=== PATIENT | female | born 1940 | race Caucasian/White ===

== ENCOUNTER 2021-03-03 22:36 | Emergency (ER) | payer OTHER, MEDICAID ==
[~2021-03-03] VITALS: Ht 160 cm; Wt 63.5 kg
[~2021-03-03 22:36] MED LIST: ACET-2634 PO; ACET-73 PO; ARGI500T4 PO; ASA81 PO; ASCO500T20 PO; ATEN-166 PO; BISA10SU61 RC; DONE10TA44 PO; FERR-69 PO; HYDR-3917 PO; INSU100V9 SQ; LEVO25TA2 PO; LIP40 PO; LOSA100T3 PO; MEGE20TA6 PO; MELA1TAB14 PO; METF-833 PO; MOM PO; MULT-1117 PO; NYST15PO2 TP; SENN8.6T19 PO; SSNOVOLOG SUBCUT; VANC750P14 IV; ZINC100T2 PO; [UNRECOGNIZED DRUG - CODE] PO
[2021-03-03 22:45] VITALS: BP_SYST 126
[2021-03-03 23:21] LABS: HEMATOCRIT 24.3 % (36-48); MEAN CORPUSCULAR HEMOGLOBIN 31 pg (27-31); MEAN CORPUSCULAR HGB CONC 33 % (32-36); MEAN CORPUSCULAR VOLUME 93 fL (79.0-98.0); PLATELET COUNT (AUTO) 355 K/uL (130-430); RED BLOOD CELL COUNT(AUTO) 2.62 MIL/uL (4.2-6.2); RED CELL DISTRIBUTION WIDTH 14.9 % (9.0-15.0); WHITE BLOOD COUNT (AUTO) 19.1 K/uL (4.8-10.8)
[2021-03-03 23:31] LABS: ALANINE AMINOTRANSFERASE 40 U/L (12-78); ASPARTATE AMINOTRANSFERASE 20 U/L (10-37); CALCIUM 8.4 mg/dL (8.4-11.0); CHLORIDE 106 mmol/L (98-107); CREATININE 0.81 mg/dL (0.55-1.30); GLUCOSE 104 mg/dL (70-99); POTASSIUM 4.8 mmol/L (3.5-5.1); SODIUM SERUM 137 mmol/L (136-145); TOTAL BILIRUBIN 0.2 mg/dL (0.0-1.0); UREA NITROGEN, BLOOD 27 mg/dL (8-21)
[2021-03-03 23:34] LABS: ATYPICAL LYMPHOCYTES % 0 % (0-0); BAND % (MANUAL) 1 % (0-6); LYMPHOCYTES % (MANUAL) 11 % (20-46)
[2021-03-03 23:35] LABS: BASOPHILS % (MANUAL) 0 % (0-2); EOSINOPHILS % (MANUAL) 1 % (0-7); MONOCYTES % (MANUAL) 8 % (0-11)
[2021-03-03 23:37] LABS: ANION GAP 7 (5-15)
[2021-03-03] MEDS ORDERED: fentaNYL CITRATE/PF 100 MCG/2 ML AMP IVP ONE (23:45)
[2021-03-03] MEDS ORDERED: ONDANSETRON HCL 4 MG/2 ML VIAL IVP ONE (23:45)
[2021-03-04 02:02] LABS: BILIRUBIN,URINE NEGATIVE (NEGATIVE); BLOOD, URINE NEGATIVE (NEGATIVE); CLARITY/URINE CLEAR (CLEAR); COLOR,URINE YELLOW (YELLOW); GLUCOSE,URINE NEGATIVE (NEGATIVE); KETONES,URINE NEGATIVE (NEGATIVE); LEUKOCYTE ESTERASE ,URINE 1+ (NEGATIVE); NITRITE, URINE NEGATIVE (NEGATIVE); PROTEIN URINE NEGATIVE (NEGATIVE); UROBILINOGEN,URINE 0.2 (0.2-1.0)
[2021-03-04] MEDS ORDERED: ONDA-8 TL (02:02)
[2021-03-04 02:09] LABS: BACTERIA,URINE FEW /HPF (None Seen); RBC,URINE 0-3 /HPF (0-3)
[2021-03-04] MEDS ORDERED: LEVOFLOXACIN IN DEXTROSE 5 % 100 ML IV ONE ×2 (02:30→02:41)
[2021-03-04 03:36] VITALS: BP_SYST 127
== END 2021-03-04 03:36 ==
LOC: SED 22:36
DX: S06.2X0A Diffuse traumatic brain injury without loss of consciousness, initial encounter (principal); S70.01XA Contusion of right hip, initial encounter; S80.01XA Contusion of right knee, initial encounter; M86.9 Osteomyelitis, unspecified; F03.90 Unspecified dementia, unspecified severity, without behavioral disturbance, psychotic disturbance, mood disturbance, and anxiety; I10 Essential (primary) hypertension; E11.9 Type 2 diabetes mellitus without complications; W18.39XA Other fall on same level, initial encounter; Y93.89 Activity, other specified; Y92.89 Other specified places as the place of occurrence of the external cause; Y99.8 Other external cause status; Z88.0 Allergy status to penicillin; Z79.899 Other long term (current) drug therapy
CPT/HCPCS: 36415; 70450; 71045; 72125; 73502; 73560; 76376; 80053; 81000; 83605; 85007; 85027; 85610; 85730; 87040; 87086; 96374; 96375; 99285; J1956; J2405; J3010

== ENCOUNTER 2021-07-10 02:21 | Inpatient (IN) | payer OTHER, MEDICAID, SELFPAY ==
[~2021-07-10] VITALS: Ht 157.5 cm; Wt 54.4 kg
[~2021-07-10 02:21] MED LIST changes: +MEGE20TA3 PO; -MEGE20TA6 PO; +ONDA-8 TL
--- NOTE | 2021-07-10 02:21 | NUR ---
Received patient to ER via BLS ambulance from [facility] w/ c/o abnormal labs (wbc 31.2). patient oriented to name only, non-verbal but moans when being poked or pricked. patient noted to have bilateral heel decubs and coccyx decub. Contracted to right lower leg. Introduced self to patient, positioned for comfort, continue to monitor.
[2021-07-10 02:26] VITALS: BP_SYST 110
--- NOTE | 2021-07-10 02:40 | NUR ---
# 20 gauge angiocath placed to right forearm. Use of asceptic technique. Opsite placed over site. Blood return noted. Blood for lab drawn from site. Flushed with 10 cc of normal saline. No evidence of infiltration noted. Patient tolerated well. Covid, MRSA, and blood cx x1 obtained as well.
--- NOTE | 2021-07-10 03:00 | NUR ---
# 16 FR Ruiz catheter with use of sterile technique. Immediate return of 500 cc yellow cloudy urine noted. Bedside drainage bag placed below level of bladder. Urine sample collected and sent to lab. Pt tolerated procedure.
[2021-07-10 03:32] LABS: ANION GAP 9 (5-15); BASOPHILS # (AUTO) 0.1 K/uL (0.0-0.2); BASOPHILS % (AUTO) 0.2 % (0.0-2.0); CALCIUM 8.7 mg/dL (8.4-11.0); CHLORIDE 99 mmol/L (98-107); CREATININE 1.29 mg/dL (0.55-1.30); GLUCOSE 174 mg/dL (70-99); HEMATOCRIT 22.4 % (36-48); HEMOGLOBIN 7.3 g/dL (12.0-16.0); LYMPHOCYTES # (AUTO) 3.4 K/uL (1.0-5.5); LYMPHOCYTES % (AUTO) 10.8 % (20.5-51.5); MEAN CORPUSCULAR HEMOGLOBIN 31 pg (27-31); MEAN CORPUSCULAR HGB CONC 32 % (32-36); MEAN CORPUSCULAR VOLUME 94 fL (79.0-98.0); MONOCYTES # (AUTO) 1.8 K/uL (0.0-1.0); MONOCYTES % (AUTO) 5.6 % (1.7-9.3); NEUTROPHILS # (AUTO) 26.6 K/uL (1.8-7.7); NEUTROPHILS % (AUTO) 83.4 % (40.0-70.0); PLATELET COUNT (AUTO) 331 K/uL (130-430); POTASSIUM 5.2 mmol/L (3.5-5.1); RED BLOOD CELL COUNT(AUTO) 2.38 MIL/uL (4.2-6.2); RED CELL DISTRIBUTION WIDTH 16.7 % (9.0-15.0); SODIUM SERUM 130 mmol/L (136-145); UREA NITROGEN, BLOOD 66 mg/dL (8-21)
[2021-07-10 03:33] LABS: BILIRUBIN,URINE NEGATIVE (NEGATIVE); BLOOD, URINE 1+ (NEGATIVE); COLOR,URINE YELLOW (YELLOW); GLUCOSE,URINE NEGATIVE (NEGATIVE); KETONES,URINE TRACE (NEGATIVE); LEUKOCYTE ESTERASE ,URINE 3+ (NEGATIVE); NITRITE, URINE NEGATIVE (NEGATIVE); PH,URINE 5.5 (5.0-8.0); PROTEIN URINE NEGATIVE (NEGATIVE); UROBILINOGEN,URINE 0.2 (0.2-1.0)
[2021-07-10 03:34] LABS: CLARITY/URINE HAZY (CLEAR)
[2021-07-10 03:36] LABS: PROTHROMBIN TIME 10.3 SECS (9.5-12.5)
[2021-07-10 03:38] LABS: ALANINE AMINOTRANSFERASE 17 U/L (12-78); ALBUMIN 2.4 g/dL (3.4-4.8); ASPARTATE AMINOTRANSFERASE 13 U/L (10-37); TOTAL BILIRUBIN 0.2 mg/dL (0.0-1.0)
[2021-07-10 03:39] LABS: WHITE BLOOD COUNT (AUTO) 31.9 K/uL (4.8-10.8)
[2021-07-10 03:58] LABS: BACTERIA,URINE MODERATE /HPF (None Seen); WBC,URINE 50-80 /HPF (0-3)
[2021-07-10] MEDS ORDERED: cefTRIAXone 1 GM VIAL IM ONE (04:00)
[2021-07-10] MEDS ORDERED: VANCOMYCIN HCL 1,000 MG in NS 250 ML IV ONE (04:00)
[2021-07-10] MEDS ORDERED: AZITHROMYCIN 500 MG in NS 250 ML IV ONE (04:00)
--- NOTE | 2021-07-10 04:12 | NUR ---
Medicated w/ Rocephin 1gm per MD orders. IVF 0.9% NS infusing with no s/s of infiltration at this time. Will cont to monitor and observe for any adverse reaction. continue to monitor.
[2021-07-10] MEDS ORDERED: AZITHROMYCIN 500 MG/VIAL (ZITHROMAX) IV ONE (04:19)
[2021-07-10] MEDS ORDERED: VANCOMYCIN HCL 1000 MG/VIAL IV ONE (04:19)
--- NOTE | 2021-07-10 04:25 | NUR ---
EKG performed at by Maurice. Physician given copy of EKG for review.
[2021-07-10] MEDS ORDERED: NACL 0.9% 1,000 ML IV ONE (04:30)
[2021-07-10] MEDS ORDERED: cefTRIAXone 1 GM in D5W 50 ML IV ONE (04:30)
[2021-07-10] MEDS ORDERED: DEXAMETHASONE SOD PHOSPHATE 4 MG/ML VIAL IVP ONE (04:30)
--- NOTE | 2021-07-10 04:42 | NUR ---
Medicated Vancomycin 1gm ivpb per MD orders. IVF infusing with no s/s of infiltration at this time. Will cont to monitor and observe for any adverse reaction. Bed to low position sr up. patient also medicated w/ 6mg of Decadron ivp.
--- NOTE | 2021-07-10 05:28 | NUR ---
patient incontinent of fecal matter, cleaned w/ soap and water, repositioned for comfort. continue to monitor.
--- NOTE | 2021-07-10 05:38 | NUR ---
Medicated 1gm Vancomycin ivpb per MD orders. Will cont to monitor and observe for any adverse reaction. Bed to low position sr up, continue to monitor.
--- NOTE | 2021-07-10 06:08 | NUR ---
Patient will be admitted to care of [facility]. Admitted to medsurg unit. Will go to room 126B. Belongings list completed. Complete and up to date summary report printed. SBAR report to be given at bedside with opportunity for questions.
--- NOTE | 2021-07-10 06:25 | NUR ---
Admission Note Received patient from ER with diagnosis of SEPSIS, URINARY TRACT INFECTION, COVID. Initial Plan of Care discussed-patient verbalized understanding. Oriented to room, call light, pain management and safety.
--- NOTE | 2021-07-10 08:00 | NUR ---
OPENING NOTES: PATIENT RESTING RESTING IN BED. BREATHING EVEN AND NON LABORED TO RA. IV INFUSING WELL. BED LOCKED, ALARM AND IN LOWEST POSITION. FALL, SAFETY AND ASPIRATION MEASURES REINFORCED. CALL LIGHT WITHIN REACH.
[2021-07-10 08:53] VITALS: BP_SYST 124
[2021-07-10 11:13] VITALS: BP_SYST 124
[2021-07-10 12:50] VITALS: BP_SYST 120
[2021-07-10] MEDS ORDERED: ACETAMINOPHEN 500 MG TABLET PO PRN ×2 (14:00)
[2021-07-10] MEDS ORDERED: ONDANSETRON 4 MG ODT TAB TL PRN (14:00)
[2021-07-10] MEDS ORDERED: NALOXONE HCL 0.4 MG/ML AMP (NARCAN) IVP PRN ×3 (14:00)
[2021-07-10] MEDS ORDERED: SENNOSIDES 8.6 MG TABLET PO PRN (14:00)
[2021-07-10] MEDS ORDERED: ACETAMINOPHEN 325 MG TABLET PO PRN (14:00)
[2021-07-10] MEDS ORDERED: LORazepam 2 MG/ML VIAL IVP PRN (14:00)
[2021-07-10] MEDS ORDERED: HYDROcodone/ACETAMIN 10-325 MG TAB PO PRN (14:00)
[2021-07-10] MEDS ORDERED: HYDROcodone/ACETAMIN 5-325 MG TAB (NORCO/ VICODIN) PO PRN ×2 (14:00)
[2021-07-10] MEDS ORDERED: ONDANSETRON HCL 4 MG/2 ML VIAL IVP PRN (14:00)
--- NOTE | 2021-07-10 14:56 | NUR ---
Nutrition Note Pt's primary RN called dietary office and stated that pt is not eating much and would benefit from ONS. RD noted pt's elevated BG levels and current diet order (cardiac, CCHO standard carb-60 gm). Pt may benefit from Glucerna BID at this time. Pt will be seen by RD for high risk Nutrition Assessment by 07/12.
--- NOTE | 2021-07-10 15:38 | NUR ---
CONSULTATION PAGED/CALLED Reason for Consultation: [] LEUKOCYTOSIS Person Who was Notified: [] OMAR Consulting Physician: [] DR LOMELI Fisher Swordfish Specialty: [] ID Ordering Physician: [] DR Norman DELVALLE
--- NOTE | 2021-07-10 15:46 | NUR ---
RN NOTES: PATIENT RESTING IN BED. HOB ELEVATED. GIVEN GLUCERNA. NO S/S OF ACUTE DISTRESS NOTED. BED LOCKED, ALARM ON AND IN LOWEST POSITION. WILL CONTINUE MONITOR PATIENT.
[2021-07-10 16:50] VITALS: BP_SYST 123
[2021-07-10] MEDS: INSULIN REGULAR, HUMAN 100 UNITS/ML, 10 ML VIAL (humuLIN R) SUBCUT PRN ×2 (16:53→21:20)
--- NOTE | 2021-07-10 18:50 | NUR ---
CLOSING NOTES: PATIENT EATING DINNER WITH TOTAL ASSIST. HOB ELEVATED. NO S/S OF ACUTE DISTRESS NOTED. BED LOCKED, ALARM ON AND IN LOWEST POSITION. PERAZA CATHETER SECURED AND DRAINING BY GRAVITY. FALL, ASPIRATION AND SAFETY MEASURES RENDERED. WILL CONTINUE MONITOR UNTIL ENDORSE TO SHANK TURNER RN.
[2021-07-10 20:00] VITALS: BP_SYST 99
[2021-07-10] MEDS: ASCORBIC ACID 500 MG TABLET PO SCH (21:14)
[2021-07-10] MEDS: DONEPEZIL HCL 5 MG TABLET (ARICEPT) PO SCH (21:14)
[2021-07-10] MEDS: MEGESTROL ACETATE 400 MG/10 ML UDC PO SCH (21:14)
[2021-07-10] MEDS: INSULIN GLARGINE 100 UNITS/ML 10 ML VIAL SQ SCH (21:19)
[2021-07-10] MEDS: MELATONIN 3 MG TABLET PO SCH (21:23)
--- NOTE | 2021-07-10 21:23 | NUR ---
meds scheduled meds given; crushed and mixed in applesauce. Patient was cooperative, swallowed meds, then took sip of water. Accucheck done and result of 353mg/dL obtained, covered w/ Regular insulin per sliding scale.
[2021-07-11] VITALS: BP_SYST 117
--- NOTE | 2021-07-11 04:05 | NUR ---
Resting Patient is resting in comfortable position w/eyes open. Nonlabored breathing. Safety and isolation precautions in place.
--- NOTE | 2021-07-11 05:45 | NUR ---
IV start A #22 gauge angiocath was placed to left wrist. Use of asceptic technique, blood return noted. Flushed with 10 cc of normal saline. Patient was cooperative and tolerated. Administered due antibiotic, Vanco.
[2021-07-11] MEDS: VANCOMYCIN HCL 750 MG in NS 250 ML IV SCH (06:32)
[2021-07-11] MEDS: LEVOTHYROXINE SODIUM 0.025 MG TABLET PO SCH (06:33)
[2021-07-11] MEDS: INSULIN REGULAR, HUMAN 100 UNITS/ML, 10 ML VIAL (humuLIN R) SUBCUT PRN ×3 (06:37→16:53)
--- NOTE | 2021-07-11 06:50 | NUR ---
closing note Patient resting in comfortable position. No distress and nonlabored breathing. IV antibiotic infusing well, no s/sx of infiltration. Accucheck done-169mg/dL and covered w/ 2U Regular insulin. Safety and isolation precautions in place.
[2021-07-11 07:01] LABS: ANION GAP 9 (5-15); CALCIUM 8.6 mg/dL (8.4-11.0); CHLORIDE 106 mmol/L (98-107); CREATININE 0.94 mg/dL (0.55-1.30); GLUCOSE 185 mg/dL (70-99); SODIUM SERUM 134 mmol/L (136-145); UREA NITROGEN, BLOOD 54 mg/dL (8-21)
[2021-07-11 08:17] VITALS: BP_SYST 110
[2021-07-11] MEDS: ARGININE PO SCH (09:00)
[2021-07-11 09:08] LABS: MEAN CORPUSCULAR HEMOGLOBIN 31 pg (27-31); MEAN CORPUSCULAR HGB CONC 33 % (32-36); MEAN CORPUSCULAR VOLUME 94 fL (79.0-98.0); PLATELET COUNT (AUTO) 323 K/uL (130-430); RED CELL DISTRIBUTION WIDTH 16.4 % (9.0-15.0); WHITE BLOOD COUNT (AUTO) 26.2 K/uL (4.8-10.8)
[2021-07-11] MEDS: ATORVASTATIN 20 MG TABLET PO SCH (09:14)
[2021-07-11] MEDS: BISACODYL 10 MG/SUPPOSITORY RC SCH (09:14)
[2021-07-11] MEDS: ASPIRIN 81 MG TAB.CHEW PO SCH (09:14)
[2021-07-11] MEDS: MEGESTROL ACETATE 400 MG/10 ML UDC PO SCH ×2 (09:14→20:40)
[2021-07-11] MEDS: FERROUS SULFATE 325 MG TABLET.DR PO SCH (09:14)
[2021-07-11] MEDS: MILK OF MAGNESIA 30 ML UDC PO SCH (09:14)
[2021-07-11] MEDS: LOSARTAN POTASSIUM 50 MG TABLET (COZAAR) PO SCH (09:15)
[2021-07-11] MEDS: ATENOLOL 25 MG TABLET(TENORMIN) PO SCH (09:15)
[2021-07-11] MEDS: NYSTATIN 15 GM TOPICAL POWDER TP SCH (09:22)
[2021-07-11] MEDS: SODIUM CHLORIDE 500 MG TABLET PO SCH (09:22)
[2021-07-11] MEDS: MULTIVITAMINS TAB 1 TABLET PO SCH (09:22)
[2021-07-11 11:27] LABS: HEMATOCRIT 20.6 % (36-48); HEMOGLOBIN 6.7 g/dL (12.0-16.0)
[2021-07-11 12:00] VITALS: BP_SYST 113
--- NOTE | 2021-07-11 13:13 | NUR ---
CONSULTATION PAGED REASON FOR CONSULTATION:ANEMIA WAS CONSULT CALLED?Y PERSON WHO WAS NOTIFIED:ANTIONE CONSULTING PHYSICIAN:JUNIOR GROVES COD CLERK SPECIALTY:HEMATOLOGY/DATA COLLECTION TECHNICIAN PHONE NUMBER:[phone] REQUESTING PHYSICIAN:SHANKAR NARANJO
[2021-07-11] MEDS ORDERED: metroNIDAZOLE 250 mg/NS 50 ML IV SCH (14:00)
[2021-07-11] MEDS ORDERED: metroNIDAZOLE 250 MG TABLET PO ONE (14:15)
[2021-07-11 14:39] LABS: BASOPHILS % (MANUAL) 0 % (0-2); EOSINOPHILS % (MANUAL) 0 % (0-7); LYMPHOCYTES % (MANUAL) 12 % (20-46); MONOCYTES % (MANUAL) 3 % (0-11)
[2021-07-11 16:23] VITALS: BP_SYST 112
--- NOTE | 2021-07-11 18:25 | NUR ---
BLOOD TRANFUSION (PRBC) RUNNING. PT HAS NO S/S OF TRANFUSION RXN. NO SOB. NO FEVER. WILL CONT TO MONITOR. IV SITE NORMAL.
[2021-07-11 19:00] VITALS: BP_SYST 115
--- NOTE | 2021-07-11 19:15 | NUR ---
change of shift.pt.presents isolation status;droplet;covid19+status.pt.presents iv access location lt.wrist blood transfusion in progress.pt.presents medina cath intact urine content present.pt.presents wounds.pt.presents affect;withdrawn.general status stable.respiratory status stable;unlabored@room air.call light/telephone w/in access of the pt.
--- NOTE | 2021-07-11 19:30 | NUR ---
blood transfusion completed.no adverse reaction manifested.v/s assessed per protocol.
[2021-07-11 20:00] VITALS: BP_SYST 115
--- NOTE | 2021-07-11 20:00 | NUR ---
pt.assessed.v/s assessed values wnl.per flacc pain mgx pt.absent facial grimaces/body posturing.iv access intact iv fluids infusing.medina cath intact urine content present.pt.assessed for cleanliness.pt.repositioned.call light/telephone places w/in access of the pt.
--- NOTE | 2021-07-11 20:30 | NUR ---
blood glucose assessed value;103mg/dl.
[2021-07-11] MEDS: CEFEPIME 0.5 GM in D5W 50 ML IV SCH (20:39)
[2021-07-11] MEDS: DONEPEZIL HCL 5 MG TABLET (ARICEPT) PO SCH (20:39)
[2021-07-11] MEDS: MELATONIN 3 MG TABLET PO SCH (20:40)
[2021-07-11] MEDS: ASCORBIC ACID 500 MG TABLET PO SCH (20:40)
[2021-07-11] MEDS: INSULIN GLARGINE 100 UNITS/ML 10 ML VIAL SQ SCH (21:00)
--- NOTE | 2021-07-11 21:00 | NUR ---
2100pmedications administered.pt.presents poor oral intact%ingesting the po medications was laborious.pt.consumed scant amount of the mixture apple sauce.i have held the administration lantus:12-u 2/t poor oral intake%.no c/o pain,nausea.call light/telephone placed w/in access of the pt.
[2021-07-11] MEDS: metroNIDAZOLE 250 MG TABLET PO SCH (21:37)
--- NOTE | 2021-07-11 22:00 | NUR ---
pt.assessed.pt.presents quiescent affect;calm,somnolent.per flacc pain mgx pt.absent facial grimaces/body posturing.iv access intact iv fluids infusing.medina cath intact urine content present.call light/telephone placed w/in access of the pt.
--- NOTE | 2021-07-12 | NUR ---
pt.assessed.v/s assessed values wnl.per flacc pain mgx pt.absent facial grimaces/body posturing.pt.assessed for cleanliness pt.repositioned.iv access intact iv fluids infusing.medina cath intact urine content present.call light/telephone placed w/in access of the pt.
[2021-07-12 01:36] VITALS: BP_SYST 141
--- NOTE | 2021-07-12 02:00 | NUR ---
pt.assessed.pt.presents quiescent affect;calm,somnolent.per flacc pain mgx pt.absent facial grimaces/body posturing.pt.assessed for cleanliness.pt.repositioned.call light/telephone palced w/in access of the pt.
--- NOTE | 2021-07-12 04:00 | NUR ---
pt.assessed.pt.presents quiescent affect;calm,somnolent.per flacc pain mgx pt.absent facial grimaces/body posturing.iv access intact iv fluids infusing.medina cath intact urine content present.pt.assessed for cleanliness pt.repositioned.call light/telephone placed w/in access of the pt.
[2021-07-12] MEDS: VANCOMYCIN HCL 750 MG in NS 250 ML IV SCH (05:48)
[2021-07-12] MEDS: metroNIDAZOLE 250 MG TABLET PO SCH ×3 (05:48→21:22)
[2021-07-12] MEDS: LEVOTHYROXINE SODIUM 0.025 MG TABLET PO SCH (05:48)
--- NOTE | 2021-07-12 06:50 | NUR ---
Nutrition Update Jaxon Scale 10 noted. Pt admitted for Sepsis, UTI, COVID Diet: Cardiac BMI: 23.4 kg/m2 RD to follow per nutrition care standards.
[2021-07-12 06:51] LABS: BASOPHILS % (AUTO) 0.2 % (0.0-2.0); EOSINOPHILS % (AUTO) 0.2 % (0.0-4.0); HEMOGLOBIN 9.6 g/dL (12.0-16.0); LYMPHOCYTES # (AUTO) 4.3 K/uL (1.0-5.5); MEAN CORPUSCULAR HEMOGLOBIN 31 pg (27-31); MEAN CORPUSCULAR HGB CONC 34 % (32-36); MEAN CORPUSCULAR VOLUME 90 fL (79.0-98.0); MONOCYTES # (AUTO) 1.2 K/uL (0.0-1.0); NEUTROPHILS # (AUTO) 14.1 K/uL (1.8-7.7); NEUTROPHILS % (AUTO) 71.6 % (40.0-70.0); PLATELET COUNT (AUTO) 320 K/uL (130-430); RED BLOOD CELL COUNT(AUTO) 3.13 MIL/uL (4.2-6.2); RED CELL DISTRIBUTION WIDTH 17.5 % (9.0-15.0); WHITE BLOOD COUNT (AUTO) 19.6 K/uL (4.8-10.8)
[2021-07-12 07:37] LABS: ALANINE AMINOTRANSFERASE 22 U/L (12-78); ALBUMIN 2.3 g/dL (3.4-4.8); ANION GAP 10 (5-15); ASPARTATE AMINOTRANSFERASE 12 U/L (10-37); CALCIUM 9.2 mg/dL (8.4-11.0); CHLORIDE 105 mmol/L (98-107); CREATININE 0.79 mg/dL (0.55-1.30); GLUCOSE 105 mg/dL (70-99); POTASSIUM 4.7 mmol/L (3.5-5.1); SODIUM SERUM 134 mmol/L (136-145); TOTAL BILIRUBIN 0.4 mg/dL (0.0-1.0); UREA NITROGEN, BLOOD 40 mg/dL (8-21)
[2021-07-12] MEDS: CEFEPIME 0.5 GM in D5W 50 ML IV SCH ×2 (08:27→21:26)
[2021-07-12] MEDS: ATORVASTATIN 20 MG TABLET PO SCH (08:33)
[2021-07-12] MEDS: SODIUM CHLORIDE 500 MG TABLET PO SCH (08:34)
[2021-07-12] MEDS: FERROUS SULFATE 325 MG TABLET.DR PO SCH (08:35)
[2021-07-12] MEDS: BISACODYL 10 MG/SUPPOSITORY RC SCH (08:35)
[2021-07-12] MEDS: MILK OF MAGNESIA 30 ML UDC PO SCH (08:35)
[2021-07-12] MEDS: MEGESTROL ACETATE 400 MG/10 ML UDC PO SCH ×2 (08:35→21:22)
[2021-07-12] MEDS: ASPIRIN 81 MG TAB.CHEW PO SCH (08:35)
[2021-07-12] MEDS: MULTIVITAMINS TAB 1 TABLET PO SCH (08:35)
[2021-07-12] MEDS: ARGININE PO SCH (08:36)
[2021-07-12] MEDS: LOSARTAN POTASSIUM 50 MG TABLET (COZAAR) PO SCH (08:36)
[2021-07-12] MEDS: ATENOLOL 25 MG TABLET(TENORMIN) PO SCH (08:36)
[2021-07-12 08:37] VITALS: BP_SYST 134
[2021-07-12] MEDS: NYSTATIN 15 GM TOPICAL POWDER TP SCH (08:37)
[2021-07-12 11:34] VITALS: BP_SYST 136
[2021-07-12] MEDS: INSULIN REGULAR, HUMAN 100 UNITS/ML, 10 ML VIAL (humuLIN R) SUBCUT PRN ×2 (11:55→17:39)
[2021-07-12 12:21] LABS: C-REACTIVE PROTEIN QUANT 3.6 mg/dL (0-0.5)
[2021-07-12 12:28] LABS: ERYTHROCYTE SEDIMENTATION RATE 25 MM/HR (0-20)
--- NOTE | 2021-07-12 12:41 | NUR ---
Dietitian Recommendations *Recommend: Pureed CCHO Cardiac diet, Glucerna TID, Pierce BID. *Encourage PO intake. Please see Nutritional Assessment for details. VINCENT, RD
[2021-07-12 15:40] VITALS: BP_SYST 92
--- NOTE | 2021-07-12 15:44 | NUR ---
PT FAMILY CALLED AND GIVEN UPDATE.
[2021-07-12 17:30] LABS: BILIRUBIN,URINE NEGATIVE (NEGATIVE); BLOOD, URINE 1+ (NEGATIVE); CLARITY/URINE CLEAR (CLEAR); COLOR,URINE YELLOW (YELLOW); GLUCOSE,URINE NEGATIVE (NEGATIVE); KETONES,URINE NEGATIVE (NEGATIVE); LEUKOCYTE ESTERASE ,URINE TRACE (NEGATIVE); NITRITE, URINE NEGATIVE (NEGATIVE); PROTEIN URINE NEGATIVE (NEGATIVE); UROBILINOGEN,URINE 0.2 (0.2-1.0)
--- NOTE | 2021-07-12 18:35 | NUR ---
PT'S DAUGHTER CALLED AND GIVEN UPDATE
--- NOTE | 2021-07-12 18:36 | NUR ---
PT HAS BEEN STABLE, NO C/O PAIN, NO SOB, NO FEVER. PT TURNED AND REPOSITIONED Q2HRS. WOUND DRESSING CLEAN AND DRY. STOOL AND URINE SAMPLE SENT TO LAB. WILL ENDORSE TO NIGHT NURSE.
[2021-07-12 18:52] LABS: BACTERIA,URINE FEW /HPF (None Seen); MUCUS,URINE None Seen /LPF (None Seen)
[2021-07-12 21:20] VITALS: BP_SYST 144
[2021-07-12] MEDS: ASCORBIC ACID 500 MG TABLET PO SCH (21:21)
[2021-07-12] MEDS: DONEPEZIL HCL 5 MG TABLET (ARICEPT) PO SCH (21:21)
[2021-07-12] MEDS: MELATONIN 3 MG TABLET PO SCH (21:22)
[2021-07-12] MEDS: INSULIN GLARGINE 100 UNITS/ML 10 ML VIAL SQ SCH (21:44)
--- NOTE | 2021-07-12 21:44 | NUR ---
MED PASS PATIENT DUE MEDICATIONS GIVEN AND TOLERATED. VITAL SIGNS STABLE. NO C/O PAIN.
[2021-07-13 00:45] VITALS: BP_SYST 143
--- NOTE | 2021-07-13 00:45 | NUR ---
ROUNDS PATIENT RESTING IN BED. BREATHING UNLABORED ON ROOM AIR. VITAL SIGNS STABLE.
--- NOTE | 2021-07-13 02:30 | NUR ---
ROUNDS PATIENT RESTING. BREATHING UNLABORED. BED ALARM ON.
[2021-07-13] MEDS ORDERED: VANCOMYCIN HCL 1000 MG/VIAL IV ONE (04:20)
[2021-07-13] MEDS: VANCOMYCIN HCL 750 MG in NS 250 ML IV SCH (05:26)
--- NOTE | 2021-07-13 05:30 | NUR ---
AM CARE/WOUND CARE AM CARE DONE. PATIENT HAD LARGE BM. LINENS CHANGED. WOUND CARE DONE ON PATIENT SACRAL AND RT FOOT WOUNDS.
[2021-07-13] MEDS: LEVOTHYROXINE SODIUM 0.025 MG TABLET PO SCH (06:35)
[2021-07-13] MEDS: metroNIDAZOLE 250 MG TABLET PO SCH ×2 (06:35→14:57)
[2021-07-13 07:47] LABS: TOTAL IRON BIND. CAPACITY 183 ug/dL (250-450)
[2021-07-13 08:00] VITALS: BP_SYST 136
[2021-07-13] MEDS: SODIUM CHLORIDE 500 MG TABLET PO SCH (08:43)
[2021-07-13] MEDS: MILK OF MAGNESIA 30 ML UDC PO SCH (08:43)
[2021-07-13] MEDS: MEGESTROL ACETATE 400 MG/10 ML UDC PO SCH ×2 (08:43→21:10)
[2021-07-13] MEDS: FERROUS SULFATE 325 MG TABLET.DR PO SCH (08:44)
[2021-07-13] MEDS: MULTIVITAMINS TAB 1 TABLET PO SCH (08:44)
[2021-07-13] MEDS: LOSARTAN POTASSIUM 50 MG TABLET (COZAAR) PO SCH (08:44)
[2021-07-13] MEDS: ATORVASTATIN 20 MG TABLET PO SCH (08:45)
[2021-07-13] MEDS: CEFEPIME 0.5 GM in D5W 50 ML IV SCH ×2 (08:45→21:19)
[2021-07-13] MEDS: BISACODYL 10 MG/SUPPOSITORY RC SCH (08:45)
[2021-07-13] MEDS: ASPIRIN 81 MG TAB.CHEW PO SCH (08:45)
[2021-07-13] MEDS: ATENOLOL 25 MG TABLET(TENORMIN) PO SCH (08:45)
[2021-07-13] MEDS: NYSTATIN 15 GM TOPICAL POWDER TP SCH (08:46)
[2021-07-13] MEDS: ARGININE PO SCH (08:48)
[2021-07-13 11:33] VITALS: BP_SYST 132
[2021-07-13] MEDS: INSULIN REGULAR, HUMAN 100 UNITS/ML, 10 ML VIAL (humuLIN R) SUBCUT PRN ×2 (12:12→16:32)
[2021-07-13 15:31] VITALS: BP_SYST 90
--- NOTE | 2021-07-13 18:25 | NUR ---
Note Pt was checked on q1' and PRN all shift for needs and care all shift. Pt's bed in low position and bed alarm on all shift. IV in right forearm intact and patent. Pt was maintained with safety and isolation precautions all shift. Ruiz catheter intact and patent, draining well. Call light within reach. Peter it account manager aware of consult for pt's right foot and heel wound, which is gangrene.
[2021-07-13] MEDS: DONEPEZIL HCL 5 MG TABLET (ARICEPT) PO SCH (21:09)
[2021-07-13] MEDS: ASCORBIC ACID 500 MG TABLET PO SCH (21:10)
[2021-07-13 21:20] VITALS: BP_SYST 130
[2021-07-13] MEDS: MELATONIN 3 MG TABLET PO SCH (21:20)
--- NOTE | 2021-07-13 21:20 | NUR ---
MED PASS PATIENT DUE MEDICATIONS GIVEN. VITAL SIGNS STABLE. HS SNACK PROVIDED.
[2021-07-13] MEDS: INSULIN GLARGINE 100 UNITS/ML 10 ML VIAL SQ SCH (21:27)
--- NOTE | 2021-07-13 23:00 | NUR ---
ROUNDS PATIENT RESTING IN BED. NO DISTRESS NOTED.
[2021-07-14] VITALS (7 sets, daily range): BP systolic 93–128
--- NOTE | 2021-07-14 02:28 | NUR ---
ROUNDS PATIENT RESTING IN BED. NO DISTRESS NOTED. BED ALARM ON.
[2021-07-14] MEDS: VANCOMYCIN HCL 750 MG in NS 250 ML IV SCH (05:48)
[2021-07-14] MEDS: LEVOTHYROXINE SODIUM 0.025 MG TABLET PO SCH (05:48)
[2021-07-14 07:25] LABS: BASOPHILS # (AUTO) 0.1 K/uL (0.0-0.2); BASOPHILS % (AUTO) 0.4 % (0.0-2.0); EOSINOPHILS # (AUTO) 0.1 K/uL (0.0-0.4); EOSINOPHILS % (AUTO) 0.5 % (0.0-4.0); HEMATOCRIT 32.6 % (36-48); HEMOGLOBIN 10.9 g/dL (12.0-16.0); LYMPHOCYTES # (AUTO) 4.3 K/uL (1.0-5.5); MEAN CORPUSCULAR HEMOGLOBIN 30 pg (27-31); MEAN CORPUSCULAR HGB CONC 34 % (32-36); MEAN CORPUSCULAR VOLUME 91 fL (79.0-98.0); MONOCYTES # (AUTO) 1.4 K/uL (0.0-1.0); MONOCYTES % (AUTO) 7.1 % (1.7-9.3); NEUTROPHILS # (AUTO) 13.8 K/uL (1.8-7.7); PLATELET COUNT (AUTO) 347 K/uL (130-430); RED CELL DISTRIBUTION WIDTH 16.4 % (9.0-15.0); WHITE BLOOD COUNT (AUTO) 19.7 K/uL (4.8-10.8)
--- NOTE | 2021-07-14 08:00 | NUR ---
OPENING NOTES PATIENT ALERT AWAKE X 1 KNOWS HER NAME. LUNGS BILATERALLY DIMINISHED AT THE BASES. HAS NON PRODUCTIVE COUGH NOTED. ABDOMEN SOFT AND NON DISTENDED. IV ACCESS ON THE RT AC $20 SALINE LOCKED. BED LOW POSITION, ALARMED AND LOCKED. WILL CONTINUE TO MONITOR PATIENT STATUS.
[2021-07-14 08:06] LABS: FOLATE (FOLIC ACID) 13.9 ng/mL (>3.0)
[2021-07-14] MEDS: BISACODYL 10 MG/SUPPOSITORY RC SCH (08:46)
[2021-07-14] MEDS: MEGESTROL ACETATE 400 MG/10 ML UDC PO SCH ×2 (08:46→21:21)
[2021-07-14] MEDS: MILK OF MAGNESIA 30 ML UDC PO SCH (08:46)
[2021-07-14] MEDS: SODIUM CHLORIDE 500 MG TABLET PO SCH (08:47)
[2021-07-14] MEDS: MULTIVITAMINS TAB 1 TABLET PO SCH (08:48)
[2021-07-14] MEDS: ATORVASTATIN 20 MG TABLET PO SCH (08:48)
[2021-07-14] MEDS: ASPIRIN 81 MG TAB.CHEW PO SCH (08:49)
[2021-07-14] MEDS: LOSARTAN POTASSIUM 50 MG TABLET (COZAAR) PO SCH (08:49)
[2021-07-14] MEDS: ATENOLOL 25 MG TABLET(TENORMIN) PO SCH (08:49)
[2021-07-14] MEDS: FERROUS SULFATE 325 MG TABLET.DR PO SCH (08:49)
[2021-07-14] MEDS: CEFEPIME 0.5 GM in D5W 50 ML IV SCH ×2 (08:51→21:26)
[2021-07-14] MEDS: ARGININE PO SCH (09:00)
[2021-07-14] MEDS: NYSTATIN 15 GM TOPICAL POWDER TP SCH (09:00)
--- NOTE | 2021-07-14 09:30 | NUR ---
DUE MEDS GIVEN ORDERED.
--- NOTE | 2021-07-14 12:00 | NUR ---
LATEST BS 218 MG/DL. COVERAGE GIVEN.
[2021-07-14] MEDS: INSULIN REGULAR, HUMAN 100 UNITS/ML, 10 ML VIAL (humuLIN R) SUBCUT PRN ×3 (12:34→22:16)
--- NOTE | 2021-07-14 16:00 | NUR ---
REPOSITIONED TO SIDES. HOB ELEVATED.
--- NOTE | 2021-07-14 18:28 | NUR ---
LATEST BS 181 MG/DL. COVERAGE GIVEN. ASSISTS ON DINNER. MADE COMFORTABLE.
--- NOTE | 2021-07-14 18:33 | NUR ---
AWAITING FOR THE PCR RESULT. ENDORSED TO INCOMING NURSE.
--- NOTE | 2021-07-14 19:25 | NUR ---
OPENING NOTES PATIENT RESTING, NO SIGNS OF DISTRESS NOTED. CALL LIGHT WITHIN REACH, BED ALARM ON, BED AT LOWEST POSITION, BED LOCKED. FALL, ASPIRATION, RESPIRATORY, ISOLATION AND SAFETY PRECAUTIONS IN PLACE. WILL CONTINUE TO MONITOR.
[2021-07-14] MEDS: DONEPEZIL HCL 5 MG TABLET (ARICEPT) PO SCH (21:25)
[2021-07-14] MEDS: INSULIN GLARGINE 100 UNITS/ML 10 ML VIAL SQ SCH (21:25)
[2021-07-14] MEDS: ASCORBIC ACID 500 MG TABLET PO SCH (21:25)
[2021-07-14] MEDS: MELATONIN 3 MG TABLET PO SCH (21:26)
[2021-07-15] VITALS: BP_SYST 133
--- NOTE | 2021-07-15 01:33 | NUR ---
PATIENT RESTING, APPLE SAUCE PROVIDED. NO DISTRESS NOTED. WILL CONTINUE TO MONITOR.
[2021-07-15] MEDS: VANCOMYCIN HCL 1,000 MG in NS 250 ML IV SCH (06:26)
[2021-07-15] MEDS: LEVOTHYROXINE SODIUM 0.025 MG TABLET PO SCH (06:26)
--- NOTE | 2021-07-15 06:51 | NUR ---
CLOSING NOTES PATIENT RESTING, NO SIGNS OF DISTRESS NOTED. CALL LIGHT WITHIN REACH, BED ALARM ON, BED AT LOWEST POSITION, BED LOCKED. FALL, ASPIRATION, RESPIRATORY, ISOLATION AND SAFETY PRECAUTIONS IN PLACE THROUGHOUT SHIFT. ALL NEEDS MET THROUGHOUT SHIFT. WILL ENDORSE CARE TO ONCOMING SHIFT.
--- NOTE | 2021-07-15 08:00 | NUR ---
PATIENT ALERT AWAKE X 1-2. BUT CONFUSED AT TIMES. VITALS SIGNS STABLE. AFEBRILE. LUNGS BILATERALLY CLEAR. NO OXYGEN NOTED. ABDOMEN SOFT AND NON DISTENDED. HAS IV ACCESS ON THE RT FOREARM #22. SALINE LOCK. PATENT/DRY. CALL LIGHTS WITHIN REACH. BED LOW POSITION, ALARMED AND LOCKED.
[2021-07-15] MEDS: ARGININE PO SCH (09:00)
--- NOTE | 2021-07-15 09:00 | NUR ---
DUE MEDS GIVEN ORDERED. STILL MAXIPIME IV ANTIBIOTIC.
[2021-07-15] MEDS: MEGESTROL ACETATE 400 MG/10 ML UDC PO SCH ×2 (09:05→23:07)
[2021-07-15] MEDS: MILK OF MAGNESIA 30 ML UDC PO SCH (09:05)
[2021-07-15] MEDS: SODIUM CHLORIDE 500 MG TABLET PO SCH (09:06)
[2021-07-15] MEDS: LOSARTAN POTASSIUM 50 MG TABLET (COZAAR) PO SCH (09:15)
[2021-07-15] MEDS: ATORVASTATIN 20 MG TABLET PO SCH (09:16)
[2021-07-15] MEDS: FERROUS SULFATE 325 MG TABLET.DR PO SCH (09:16)
[2021-07-15] MEDS: ASPIRIN 81 MG TAB.CHEW PO SCH (09:16)
[2021-07-15] MEDS: ATENOLOL 25 MG TABLET(TENORMIN) PO SCH (09:17)
[2021-07-15] MEDS: BISACODYL 10 MG/SUPPOSITORY RC SCH (09:18)
[2021-07-15] MEDS: CEFEPIME 0.5 GM in D5W 50 ML IV SCH ×2 (09:19→23:07)
[2021-07-15 09:27] VITALS: BP_SYST 113
[2021-07-15] MEDS: MULTIVITAMINS TAB 1 TABLET PO SCH (09:49)
[2021-07-15] MEDS: NYSTATIN 15 GM TOPICAL POWDER TP SCH (09:50)
[2021-07-15 11:48] LABS: BASOPHILS # (AUTO) 0.1 K/uL (0.0-0.2); BASOPHILS % (AUTO) 0.4 % (0.0-2.0); EOSINOPHILS # (AUTO) 0.2 K/uL (0.0-0.4); HEMATOCRIT 30.6 % (36-48); HEMOGLOBIN 10.2 g/dL (12.0-16.0); LYMPHOCYTES # (AUTO) 3.8 K/uL (1.0-5.5); LYMPHOCYTES % (AUTO) 20.3 % (20.5-51.5); MEAN CORPUSCULAR HEMOGLOBIN 30 pg (27-31); MEAN CORPUSCULAR HGB CONC 34 % (32-36); MEAN CORPUSCULAR VOLUME 91 fL (79.0-98.0); MONOCYTES # (AUTO) 1.4 K/uL (0.0-1.0); MONOCYTES % (AUTO) 7.4 % (1.7-9.3); NEUTROPHILS # (AUTO) 13.4 K/uL (1.8-7.7); NEUTROPHILS % (AUTO) 70.9 % (40.0-70.0); PLATELET COUNT (AUTO) 319 K/uL (130-430); RED BLOOD CELL COUNT(AUTO) 3.37 MIL/uL (4.2-6.2); RED CELL DISTRIBUTION WIDTH 16.3 % (9.0-15.0); WHITE BLOOD COUNT (AUTO) 18.9 K/uL (4.8-10.8)
--- NOTE | 2021-07-15 12:00 | NUR ---
EATING SLOWLY. MADE COMFORTABLE.
[2021-07-15 12:04] LABS: ANION GAP 7 (5-15); CALCIUM 9.1 mg/dL (8.4-11.0); CHLORIDE 100 mmol/L (98-107); CREATININE 0.88 mg/dL (0.55-1.30); GLUCOSE 133 mg/dL (70-99); POTASSIUM 5.3 mmol/L (3.5-5.1); SODIUM SERUM 131 mmol/L (136-145); UREA NITROGEN, BLOOD 31 mg/dL (8-21)
[2021-07-15 12:10] LABS: ALANINE AMINOTRANSFERASE 17 U/L (12-78); ALBUMIN 2.3 g/dL (3.4-4.8); ASPARTATE AMINOTRANSFERASE 9 U/L (10-37); TOTAL BILIRUBIN 0.3 mg/dL (0.0-1.0)
--- NOTE | 2021-07-15 12:42 | NUR ---
LATEST BS 136 MG/DL NO COVERAGE GIVEN AT THIS TIME.
[2021-07-15 12:57] VITALS: BP_SYST 128
--- NOTE | 2021-07-15 14:00 | NUR ---
MEAGAN RIVERSSALES OPERATIONS COORDINATOR CAME AND DO WOUND EVALUATION AND PHOTOS TAKEN.
--- NOTE | 2021-07-15 15:17 | NUR ---
WOUND EVALUATION: Late note for 07/15/21 at 1517 secondary to patient care. Wound Consult received from Dr. Ancelmo Chandra. Thank you, Dr. Chandra, for the consult. Patient received in a Angelica Bed with an IsoFlex LEA mattress with low air-loss therapy, awake, drowsy, confused. Patient is unable to turn in bed independently. Jaxon Score is a 15. Past Medical History: Dementia, Diabetes Mellitus, Hypertension, Toe Cellulitis and Sacral Decubitus Ulcer. Labs: WBC 18.9, RBC 3.37, hemoglobin 10.2, hematocrit 30.6, ESR 25, sodium 131, potassium 5.3, BUN 31, creatinine 0.88, glucose 133, AST 9, serum total protein 6.2, albumin 2.3, PTT 23.8. Microbiology: Blood culture results x2 -. MRSA screen results negative. Stool occult blood culture results negative. Urine culture results for Enterococcus faecalis. Microbiology: Blood culture results x2 in progress. Urine culture results negative. MRSA screen results in progress. Intrinsic factors that delay wound healing: Hypoalbuminemia, Diabetes Mellitus. Extrinsic factors that delay wound healing: Decreased mobility. Wound Assessment: 1. Right Posterior/Plantar/Medial Heel: Unstageable Pressure Ulcer, present on admission. Wound site has 100% black eschar. No odor, no drainage. Dry, stable. Site measures 4.0 cm x 4.3 cm. 2. Right Lateral Heel: Area next to site 1 has brown discoloration and a yellow/brown scaly skin. 3. Right Lateral Mid Foot: Unstageable pressure ulcer, present on admission. Wound bed has 100% brown eschar. No odor, no drainage. Dry, stable. Periwound intact. Wound measures 1.0 cm x 1.2 cm. 4. Right Lateral Fifth Metatarsal Head/Fifth Toe lateral aspect/Fourth toe, lateral aspect: Unstageable Pressure Ulcer versus Ischemic Ulcer, present on admission. Wound bed has 100% black eschar. No odor, no drainage. Periwound intact. Wound measures 5.5 cm x 3.0 cm. 5. Right medial first metatarsal head: Unstageable pressure ulcer, present on admission. Wound bed has 100% black eschar. No odor, no drainage. Periwound intact. Surrounding tissue has purple discoloration. Wound measures 2.9 cm x 3.2 cm. 6. Right Medial Great Toe: Area of purple discoloration, present on admission. Site measures 1.5 cm x 0.5 cm. Recommend: [place] eschar sites with Betadine. Allow to air dry. Cover heel and foot wounds with 4x4 foam dressings, then ABD pads for protection and wrap with Amada wrap. Perform site care daily, and as needed for dressing soiling or dislodgment. Offload foot and heel with pillows at all times. Do not allow any portion of foot or heel to touch bed or other surfaces at any time. 7. Left Posterior Lateral Heel: Stage III pressure ulcer, present on admission. Wound bed has 100% light red tissue. No odor, no drainage. Periwound intact. Wound measures 0.6 cm x 0.9 cm Recommend: Cleanse wound with normal saline. Apply moisture barrier cream to periwound. Apply Venelex ointment to wound bed. Cover with foam dressing, then cover with ABD pad as above. Perform site care daily, and as needed for dressing soiling or dislodgment. 8. Sacral area: Unstageable pressure ulcer, present on admission. Wound bed has 60% pink tissue, 20% black tissue, 20% yellow slough. No odor, no drainage. Periwound intact. Wound measures 1.7 cm x 1.3 cm. Recommend: Cleanse wound with normal saline. Apply moisture barrier cream to periwound. Apply Venelex ointment to wound bed. Cover with Sacral foam dressing. Perform site care daily, and as needed for dressing soiling or dislodgment. 9. Right Buttock near Ischium: Stage III pressure ulcer, present on admission. Wound bed has 100% pink tissue. No odor, scant sanguineous drainage. Periwound intact. Wound measures 1.9 cm x 0.6 cm Recommend: Cleanse wound with normal saline. Apply moisture barrier cream to periwound. Apply Venelex ointment to wound bed. Cover with 4x4 foam dressing. Perform site care daily, and as needed for dressing soiling or dislodgment. 10. Right Buttock: Skin tear, present on admission. Wound bed has 100% pink tissue. No odor, no drainage. Periwound intact. Wound measures 0.7 cm x 0.6 cm Recommend: Cleanse wound with normal saline. Apply moisture barrier cream to periwound. Apply Venelex ointment to wound bed if moisture barrier cream does not cover wound. Cover with foam dressing. Perform site care daily, and as needed for dressing soiling or dislodgment. Also recommend: Encourage and assist patient as needed with repositioning side to side only 2 hours with pillow support and off-load pressure areas with pillows for pressure re-distribution. Offload, elevate and float bilateral heels and malleoli with pillows (place one pillow in between knees and ankles while placing another pillow underneath bottom leg when patient is turned), ensure that any portion of feet or heels do not touch bed or other surfaces at any time. Perform skin care and monitor skin integrity Q shift. Use moisture barrier cream on buttocks and other moisture susceptible areas QID and as needed for soiling. Place patient on a P500 low air-loss mattress.
--- NOTE | 2021-07-15 16:10 | NUR ---
Nutrition F/U RD reviewed pt's current EMR record including diet Hx, physician notes, nursing notes, pertinent labs/meds/procedures, care trends, and care activity. Admission Dx: Sepsis, UTI, COVID PMH: Pt w/: Sepsis, Leukocytosis, Anemia, Hyponatremia, Hyperkalemia, Azotemia, Hyperglycemia, Hypoalbuminemia, Possible UTI, Hx of Right toe infection, Chronic sacral decubitus ulcers, DM, Dementia, HTN per MD notes. Pt was also found w/ Right foot osteomyelitis w/ gangrenous ulcers per ID consult. SARS-CoV-2 Ag Rapid 07/10 Positive & (PCR) Pending 07/13 Current Diet Order/Nutrition Support: Soft (low fiber/bland) Subjective Info: RD bedside visit deferred d/t airborne isolation precautions a/w COVID-19+. RD spoke w/ pt's primary RN who reported that pt's been eating OK -- ate 50% yesterday and OK at breakfast earlier today. RD suggested ONS and Pierce -- RN agreeable. She stated pt does not care for vanilla-flavored ONS -- will try chocolate-flavored. Nursing notes indicated pt eats slowly. Per EMR review, pt is alert/oriented x1-2, confusion at times; PO intake average of 50% x5 meals; last BM x2 10; Jaxon scale: 15 w/ wounds to L buttocks, posterior R buttocks, R foot, and sacrum. Pt is not yet meeting nutritional needs. Pertinent Medications: Reviewed Pertinent Labs: Na 131 L, K 5.3 H, BG 133 H, POC BG 136 H, BUN 31 H, CRE 0.88 WNL, WBC 18.9 H Height (Feet) 5 feet Height (Inches) 2.00 inches Weight (Pounds) 120 pounds -- stable since 07/12 Weight (Calculated Kilograms) 54.655648 kilograms Patient Weight 54.431 kg Body Mass Index 21.95 kg/m2 %IBW 109 [place]/Adjusted Body Weight 110#/ 50kg Recent Weight Change unknown Weight Status Appropriate Gastrointestinal Symptoms None Last BM Jul 12, 2021 Difficulty With: Chewing Usual Diet At Home Regular diet per EMR Current % PO Negligible <25% Estimated Energy Expenditure (kcals/day) 9164-3029 (30-35 kcal/kg IBW for wound healing/sepsis) Estimated Protein Required (g/day) 81-108 (1.5-2 gm/kg IBW for sepsis/wound healing) Estimated Fluid Required (l/day) 1.4 (25ml/kg IBW for Geriatric maintenance) Problem/Etiology/Signs/Symptoms Increased nutrient needs r/t metabolic demands AEB estimated calorie and protein for sepsis and wound healing. *ongoing Inadequate nutrient intake r/t possible diet texture intolerance AEB pt is on regular-textured foods, and per RN report, tolerates apple sauce w/ PO intake meeting <25% of meals. *improving Expected Outcomes/Goals Monitor appetite and PO intake w/ goal of pt meeting more than 75% of estimated nutritional needs, labs trending WNL, normal GI function, skin integrity/wt maintenance. Dietitian Recommendations * Recommend soft (low fiber/bland), cardiac, mechanical soft diet w/ Glucerna TID, Pierce BID * Encourage increase PO intakes Follow Up High Risk: F/U in 2-3 days
--- NOTE | 2021-07-15 16:15 | NUR ---
Dietitian Recommendations * Recommend soft (low fiber/bland), cardiac, mechanical soft diet w/ Glucerna TID, Pierce BID * Encourage increase PO intakes LP, RD Please refer to Nutrition F/U for details.
[2021-07-15 16:36] VITALS: BP_SYST 115
--- NOTE | 2021-07-15 18:21 | NUR ---
LATEST BS 99 MG/DL. NO COVERAGE GIVEN. TRIED TO FED WITH GLUCERNA I/2 AND FRUITS ON IT. PLEASE CONTINUE TO FED THE PATIENT.
[2021-07-15 20:00] VITALS: BP_SYST 114
[2021-07-15] MEDS: MELATONIN 3 MG TABLET PO SCH (23:05)
[2021-07-15] MEDS: ASCORBIC ACID 500 MG TABLET PO SCH (23:06)
[2021-07-15] MEDS: DONEPEZIL HCL 5 MG TABLET (ARICEPT) PO SCH (23:07)
[2021-07-15] MEDS: INSULIN GLARGINE 100 UNITS/ML 10 ML VIAL SQ SCH (23:31)
[2021-07-16 00:47] VITALS: BP_SYST 119
--- NOTE | 2021-07-16 02:48 | NUR ---
PATIENT RESTING, APPLE SAUCE PROVIDED. NO DISTRESS NOTED. PERAZA CATHETER BAG EMPTIED. WILL CONTINUE TO MONITOR.
[2021-07-16] MEDS: VANCOMYCIN HCL 1,000 MG in NS 250 ML IV SCH (06:07)
[2021-07-16] MEDS: LEVOTHYROXINE SODIUM 0.025 MG TABLET PO SCH (06:07)
--- NOTE | 2021-07-16 08:00 | NUR ---
NOTES PATIENT ALERT AWAKE X 1-2. CONFUSED AT TIMES. VITALS SIGNS STABLE. AFEBRILE. HAS IV ACCESS ON THE RT FOREARM. HAS PERAZA CATHETER IN PLACED. CALL LIGHTS WITHIN REACH. BED LOW POSITION, ALARMED AND LOCKED. WILL CONTINUE
[2021-07-16] MEDS: ATENOLOL 25 MG TABLET(TENORMIN) PO SCH (09:00)
[2021-07-16] MEDS: ARGININE PO SCH (09:00)
[2021-07-16] MEDS: CEFEPIME 0.5 GM in D5W 50 ML IV SCH (09:32)
[2021-07-16] MEDS: MEGESTROL ACETATE 400 MG/10 ML UDC PO SCH (09:32)
[2021-07-16] MEDS: MILK OF MAGNESIA 30 ML UDC PO SCH (09:32)
[2021-07-16] MEDS: SODIUM CHLORIDE 500 MG TABLET PO SCH (09:33)
[2021-07-16] MEDS: BISACODYL 10 MG/SUPPOSITORY RC SCH (09:34)
[2021-07-16] MEDS: FERROUS SULFATE 325 MG TABLET.DR PO SCH (09:34)
[2021-07-16] MEDS: ATORVASTATIN 20 MG TABLET PO SCH (09:34)
[2021-07-16] MEDS: ASPIRIN 81 MG TAB.CHEW PO SCH (09:34)
[2021-07-16] MEDS: MULTIVITAMINS TAB 1 TABLET PO SCH (09:34)
[2021-07-16] MEDS: NYSTATIN 15 GM TOPICAL POWDER TP SCH (09:40)
[2021-07-16] MEDS: LOSARTAN POTASSIUM 50 MG TABLET (COZAAR) PO SCH (09:40)
[2021-07-16 09:49] VITALS: BP_SYST 114
--- NOTE | 2021-07-16 10:00 | NUR ---
DUE MEDS GIVEN
[2021-07-16] MEDS: INSULIN REGULAR, HUMAN 100 UNITS/ML, 10 ML VIAL (humuLIN R) SUBCUT PRN ×2 (11:02→17:19)
[2021-07-16 11:36] VITALS: BP_SYST 96
[2021-07-16 15:29] VITALS: BP_SYST 115
--- NOTE | 2021-07-16 15:48 | NUR ---
Discharge Planning: DCP faxed [facility] [phone] P [phone] pt DC order and pt packet. DCP spoke to admissions pt will be accepted back to Rm 6, DON requesting airborne isolation discharge be sent with patient back to SNF. DCP made CM aware. DCP arrange transport with [facility] [phone] S P/U 7:30pm.. DCP entered infomation in intervention and took pt packet to nurse station.
[2021-07-16 15:49] VITALS: BP_SYST 128
--- NOTE | 2021-07-16 16:00 | NUR ---
DRESSING CHANGED IN THE RT FOOT/LEFT FOOT AND SACRAL AREA. PHOTOS TAKEN 07/15/21 WITH MEAGAN MASTER LAY OUT SPECIALIST
--- NOTE | 2021-07-16 19:00 | NUR ---
ENDORSED TO INCOMING NURSE DANIKA RIVERS.
--- NOTE | 2021-07-16 19:30 | NUR ---
OPENING NOTE RECEIVED REPORT FROM DAY RN. PT IN BED WITH RESPIRATIONS EVEN AND UNLABORED ON RA. PT TO BE D/C BACK TO [facility]. PT AWARE. EMT TRANSPORTATION SET TO ARRIVE AT 1930 BUT NOT HERE YET. NO SIGNS OF DISTRESS NOTED. PERAZA INTACT AND DRAINING YELLOW FLUID BY GRAVITY. RIGHT IV INTACT. SALINE LOCKED. WILL CONTINUE TO MONITOR. AND F/U WITH EMT TRANSPORTATION.
--- NOTE | 2021-07-16 20:10 | NUR ---
MADE CALL TO [facility]. PER STAFF, ACCEPTING NURSE IS BUSY. CALL BACK NUMBER GIVEN. WILL AWAIT CALL TO GIVE REPORT.
--- NOTE | 2021-07-16 20:11 | NUR ---
Follow call made for [facility], spoke to Erwin. The crew is coming late. New ETA 2044
--- NOTE | 2021-07-16 20:13 | NUR ---
[facility] RUNNING LATE. NEW ARRIVAL TIME 2044. WILL INFORM PT.
--- NOTE | 2021-07-16 20:36 | NUR ---
gave report to TITA LOPEZ at [facility]. pt going to room 6b.
--- NOTE | 2021-07-16 21:17 | NUR ---
PT TRANSFERRED Report given to emt at 2116. Transfer packet with Transfer Orders and Medication Reconciliation form given to EMT with report. Exitcare provided. [facility] ID band removed, replaced with ID band with pt's name and . All belongings sent with patient. Patient left floor via gurney escorted by EMT in no distress.
[2021-07-17] MEDS ORDERED: BALSAM PERU/CASTOR OIL 60 GM OINT...G. TP SCH (09:00)
== END 2021-07-16 21:17 | DRG 871 ==
LOC: SED 02:21 → SMU 05:24 → STU 06:06 → SMU 06:08
PROVIDERS: ADMIT Preventive Medicine Preventive Medicine/Occupational Environmental Medicine; ATTEND Preventive Medicine Preventive Medicine/Occupational Environmental Medicine
PROC: 30233N1 Transfusion of Nonautologous Red Blood Cells into Peripheral Vein, Percutaneous Approach (ICD-10-PCS; principal; 2021-07-11)
DX: A41.9 Sepsis, unspecified organism (principal); E43 Unspecified severe protein-calorie malnutrition; U07.1 COVID-19; E11.52 Type 2 diabetes mellitus with diabetic peripheral angiopathy with gangrene; E87.1 Hypo-osmolality and hyponatremia; N39.0 Urinary tract infection, site not specified; E87.5 Hyperkalemia; L89.159 Pressure ulcer of sacral region, unspecified stage; I12.9 Hypertensive chronic kidney disease with stage 1 through stage 4 chronic kidney disease, or unspecified chronic kidney disease; D64.9 Anemia, unspecified; E11.65 Type 2 diabetes mellitus with hyperglycemia; E88.09 Other disorders of plasma-protein metabolism, not elsewhere classified; F03.90 Unspecified dementia, unspecified severity, without behavioral disturbance, psychotic disturbance, mood disturbance, and anxiety; L89.899 Pressure ulcer of other site, unspecified stage; R31.29 Other microscopic hematuria; L08.9 Local infection of the skin and subcutaneous tissue, unspecified; E11.69 Type 2 diabetes mellitus with other specified complication; E11.621 Type 2 diabetes mellitus with foot ulcer; E11.22 Type 2 diabetes mellitus with diabetic chronic kidney disease; N18.2 Chronic kidney disease, stage 2 (mild); E11.628 Type 2 diabetes mellitus with other skin complications; Z88.0 Allergy status to penicillin; Z79.82 Long term (current) use of aspirin; Z79.1 Long term (current) use of non-steroidal anti-inflammatories (NSAID); Z79.899 Other long term (current) drug therapy; Z68.21 Body mass index [BMI] 21.0-21.9, adult
CPT/HCPCS: 36415; 36430; 71045; 80048; 80053; 80202; 81000; 82272; 82607; 82728; 82746; 82962; 83540; 83550; 83605; 83735; 84100; 84484; 85007; 85025; 85027; 85044; 85610-TC; 85651-TC; 85730-TC; 86140; 86886; 86900; 86901; 86920; 87040-TC; 87081; 87086; 87186-TC; 93005; 96365; 96367; 96368; 96375; 96376; 99291; J0456; J0692; J0696; J1100; J1815; J3370; J3490; J7050; J7060; P9021; U0003

== ENCOUNTER 2021-08-03 23:05 | Inpatient (IN) | payer OTHER, MEDICAID, SELFPAY ==
[~2021-08-03] VITALS: Ht 167.6 cm; Wt 49.0 kg
[2021-08-03 23:05] VITALS: BP_SYST 100
[2021-08-04 00:18] LABS: ANION GAP 9 (5-15); CALCIUM 9.3 mg/dL (8.4-11.0); CHLORIDE 103 mmol/L (98-107); CREATININE 0.98 mg/dL (0.55-1.30); GLUCOSE 77 mg/dL (70-99); POTASSIUM 5.5 mmol/L (3.5-5.1); SODIUM SERUM 132 mmol/L (136-145); UREA NITROGEN, BLOOD 56 mg/dL (8-21)
[2021-08-04 00:24] LABS: ALANINE AMINOTRANSFERASE 18 U/L (12-78); ALBUMIN 2.7 g/dL (3.4-4.8); ASPARTATE AMINOTRANSFERASE 12 U/L (10-37); TOTAL BILIRUBIN 0.2 mg/dL (0.0-1.0)
[2021-08-04 00:35] LABS: BASOPHILS # (AUTO) 0.3 K/uL (0.0-0.2); BASOPHILS % (AUTO) 1.1 % (0.0-2.0); EOSINOPHILS # (AUTO) 0.3 K/uL (0.0-0.4); EOSINOPHILS % (AUTO) 1.2 % (0.0-4.0); HEMATOCRIT 31.8 % (36-48); HEMOGLOBIN 10.4 g/dL (12.0-16.0); LYMPHOCYTES # (AUTO) 3.8 K/uL (1.0-5.5); LYMPHOCYTES % (AUTO) 16.9 % (20.5-51.5); MEAN CORPUSCULAR HEMOGLOBIN 30 pg (27-31); MEAN CORPUSCULAR HGB CONC 33 % (32-36); MEAN CORPUSCULAR VOLUME 92 fL (79.0-98.0); MONOCYTES # (AUTO) 1.4 K/uL (0.0-1.0); NEUTROPHILS # (AUTO) 16.9 K/uL (1.8-7.7); NEUTROPHILS % (AUTO) 74.8 % (40.0-70.0); PLATELET COUNT (AUTO) 437 K/uL (130-430); RED BLOOD CELL COUNT(AUTO) 3.46 MIL/uL (4.2-6.2); WHITE BLOOD COUNT (AUTO) 22.6 K/uL (4.8-10.8)
[2021-08-04] MEDS ORDERED: ASPI-524 PO (00:44)
[2021-08-04] MEDS ORDERED: SENN-169 PO (00:44)
[2021-08-04] MEDS ORDERED: MEGE400O PO (00:44)
[2021-08-04] MEDS ORDERED: ACET-2766 PO (00:44)
[2021-08-04] MEDS ORDERED: INSULIN R (00:44)
[2021-08-04] MEDS ORDERED: MELA3TAB55 PO (00:44)
[2021-08-04] MEDS ORDERED: LOSA100T23 PO (00:44)
[2021-08-04] MEDS ORDERED: ZINC220T4 PO (00:44)
[2021-08-04] MEDS ORDERED: ASC500 PO (00:44)
[2021-08-04] MEDS ORDERED: ATEN-41 PO (00:44)
[2021-08-04] MEDS ORDERED: ATOR40TA68 PO (00:44)
[2021-08-04] MEDS ORDERED: MOM PO (00:44)
[2021-08-04] MEDS ORDERED: NA P133E41 RC (00:44)
[2021-08-04] MEDS ORDERED: AMIN30LI2 PO (00:44)
[2021-08-04] MEDS ORDERED: INSU100V11 SQ (00:44)
[2021-08-04] MEDS ORDERED: MULT-1184 PO (00:44)
[2021-08-04] MEDS ORDERED: METF1000 PO (00:44)
[2021-08-04] MEDS ORDERED: ACET325T39 PO (00:44)
[2021-08-04] MEDS ORDERED: [UNRECOGNIZED DRUG - CODE] (00:44)
[2021-08-04] MEDS ORDERED: DULR10 RC (00:44)
[2021-08-04] MEDS ORDERED: DONE10TA4 PO (00:44)
[2021-08-04] MEDS ORDERED: LEVO25CA4 PO (00:44)
[2021-08-04] MEDS ORDERED: HYDR-3919 PO (00:44)
[2021-08-04] MEDS ORDERED: ARGI1POW13 PO (00:44)
[2021-08-04] MEDS ORDERED: VANCOMYCIN HCL 1,000 MG in NS 250 ML IV ONE (00:45)
[2021-08-04] MEDS ORDERED: NACL 0.9% 1,000 ML IV ONE (00:45)
[2021-08-04] MEDS ORDERED: CEFEPIME 1 GM in D5W 50 ML IV ONE (00:45)
[2021-08-04 00:49] LABS: BILIRUBIN,URINE NEGATIVE (NEGATIVE); BLOOD, URINE 2+ (NEGATIVE); CLARITY/URINE CLOUDY (CLEAR); COLOR,URINE YELLOW (YELLOW); GLUCOSE,URINE NEGATIVE (NEGATIVE); KETONES,URINE NEGATIVE (NEGATIVE); LEUKOCYTE ESTERASE ,URINE 3+ (NEGATIVE); NITRITE, URINE NEGATIVE (NEGATIVE); PH,URINE 6.5 (5.0-8.0); PROTEIN URINE 1+ (NEGATIVE); UROBILINOGEN,URINE 0.2 (0.2-1.0)
[2021-08-04] MEDS ORDERED: VANCOMYCIN HCL 1000 MG/VIAL IV ONE (00:51)
[2021-08-04] MEDS ORDERED: CEFEPIME 1 GM/VIAL (MAXIPIME) ONE (00:51)
[2021-08-04 01:18] LABS: BACTERIA,URINE MODERATE /HPF (None Seen); WBC,URINE 20-50 /HPF (0-3)
[2021-08-04] MEDS ORDERED: SODIUM POLYSTYRENE SULFONATE 15 GM/60 ML UDBTL PO ONE (02:45)
[2021-08-04] MEDS ORDERED: NS 500 ML IV ONE (03:15)
[2021-08-04 04:50] VITALS: BP_SYST 114
[2021-08-04] MEDS: NACL 0.9% 1,000 ML IV SCH ×2 (04:53→17:53)
[2021-08-04] MEDS ORDERED: PIPERACILLIN/TAZO 3.375 GM in NS 50 ML IV SCH (06:00)
[2021-08-04 07:30] VITALS: BP_SYST 94
[2021-08-04] MEDS ORDERED: VANCOMYCIN HCL 1,000 MG in NS 250 ML IV SCH (09:00)
[2021-08-04 12:00] VITALS: BP_SYST 114
[2021-08-04 16:14] VITALS: BP_SYST 106
[2021-08-04] MEDS: INSULIN REGULAR, HUMAN 100 UNITS/ML, 10 ML VIAL (humuLIN R) SUBCUT PRN (17:55)
[2021-08-04 20:05] VITALS: BP_SYST 118
[2021-08-04] MEDS: VANCOMYCIN HCL 750 MG in NS 250 ML IV SCH (20:05)
[2021-08-05] MEDS: INSULIN REGULAR, HUMAN 100 UNITS/ML, 10 ML VIAL (humuLIN R) SUBCUT PRN (00:08)
[2021-08-05 01:18] VITALS: BP_SYST 132
[2021-08-05 09:29] VITALS: BP_SYST 119
[2021-08-05] MEDS: NACL 0.9% 1,000 ML IV SCH (09:38)
[2021-08-05 10:44] LABS: BASOPHILS % (AUTO) 0.3 % (0.0-2.0); EOSINOPHILS # (AUTO) 0.2 K/uL (0.0-0.4); EOSINOPHILS % (AUTO) 1.1 % (0.0-4.0); HEMOGLOBIN 9.8 g/dL (12.0-16.0); LYMPHOCYTES # (AUTO) 3.7 K/uL (1.0-5.5); LYMPHOCYTES % (AUTO) 20.1 % (20.5-51.5); MEAN CORPUSCULAR HEMOGLOBIN 30 pg (27-31); MEAN CORPUSCULAR HGB CONC 33 % (32-36); MEAN CORPUSCULAR VOLUME 93 fL (79.0-98.0); MONOCYTES # (AUTO) 1.3 K/uL (0.0-1.0); NEUTROPHILS # (AUTO) 13.3 K/uL (1.8-7.7); NEUTROPHILS % (AUTO) 71.5 % (40.0-70.0); PLATELET COUNT (AUTO) 321 K/uL (130-430); RED BLOOD CELL COUNT(AUTO) 3.21 MIL/uL (4.2-6.2); RED CELL DISTRIBUTION WIDTH 16.5 % (9.0-15.0); WHITE BLOOD COUNT (AUTO) 18.6 K/uL (4.8-10.8)
[2021-08-05 12:16] LABS: ALANINE AMINOTRANSFERASE 17 U/L (12-78); ALBUMIN 2.4 g/dL (3.4-4.8); ANION GAP 9 (5-15); ASPARTATE AMINOTRANSFERASE 22 U/L (10-37); CALCIUM 7.9 mg/dL (8.4-11.0); CHLORIDE 108 mmol/L (98-107); CREATININE 0.66 mg/dL (0.55-1.30); GLUCOSE 141 mg/dL (70-99); POTASSIUM 4.1 mmol/L (3.5-5.1); SODIUM SERUM 136 mmol/L (136-145); TOTAL BILIRUBIN 0.4 mg/dL (0.0-1.0); UREA NITROGEN, BLOOD 27 mg/dL (8-21)
[2021-08-05 12:41] VITALS: BP_SYST 160
[2021-08-05 12:57] VITALS: BP_SYST 167
[2021-08-05 17:40] VITALS: BP_SYST 141
[2021-08-05] MEDS: CEFEPIME 0.5 GM in D5W 50 ML IV SCH (20:15)
[2021-08-05 20:20] VITALS: BP_SYST 128
[2021-08-05] MEDS: VANCOMYCIN HCL 750 MG in NS 250 ML IV SCH (21:31)
[2021-08-06] MEDS: NACL 0.9% 1,000 ML IV SCH ×2 (00:18→12:27)
[2021-08-06 00:20] VITALS: BP_SYST 145
[2021-08-06] MEDS: CEFEPIME 0.5 GM in D5W 50 ML IV SCH ×2 (09:00→20:06)
[2021-08-06] MEDS: BALSAM PERU/CASTOR OIL 60 GM OINT...G. TP SCH (09:00)
[2021-08-06 11:03] LABS: BASOPHILS # (AUTO) 0.1 K/uL (0.0-0.2); BASOPHILS % (AUTO) 0.5 % (0.0-2.0); EOSINOPHILS # (AUTO) 0.2 K/uL (0.0-0.4); EOSINOPHILS % (AUTO) 1.4 % (0.0-4.0); HEMATOCRIT 31.4 % (36-48); HEMOGLOBIN 10.3 g/dL (12.0-16.0); LYMPHOCYTES # (AUTO) 3.5 K/uL (1.0-5.5); LYMPHOCYTES % (AUTO) 23.8 % (20.5-51.5); MEAN CORPUSCULAR HEMOGLOBIN 30 pg (27-31); MEAN CORPUSCULAR HGB CONC 33 % (32-36); MEAN CORPUSCULAR VOLUME 92 fL (79.0-98.0); MONOCYTES % (AUTO) 7.1 % (1.7-9.3); NEUTROPHILS # (AUTO) 9.9 K/uL (1.8-7.7); NEUTROPHILS % (AUTO) 67.2 % (40.0-70.0); PLATELET COUNT (AUTO) 321 K/uL (130-430); RED BLOOD CELL COUNT(AUTO) 3.42 MIL/uL (4.2-6.2); RED CELL DISTRIBUTION WIDTH 15.6 % (9.0-15.0); WHITE BLOOD COUNT (AUTO) 14.7 K/uL (4.8-10.8)
[2021-08-06 12:58] VITALS: BP_SYST 154
[2021-08-06 16:30] VITALS: BP_SYST 150
[2021-08-06 20:00] VITALS: BP_SYST 142
[2021-08-06] MEDS: VANCOMYCIN HCL 750 MG in NS 250 ML IV SCH ×2 (21:00→21:38)
[2021-08-06] MEDS ORDERED: ERTAPENEM SODIUM 1 GM/VIAL VIAL ONE (22:40)
[2021-08-06] MEDS: ERTAPENEM SODIUM 0.5 GM in NS 50 ML IV SCH (23:50)
[2021-08-06] MEDS: INSULIN REGULAR, HUMAN 100 UNITS/ML, 10 ML VIAL (humuLIN R) SUBCUT PRN (23:51)
[2021-08-07 00:29] VITALS: BP_SYST 155
[2021-08-07] MEDS: NACL 0.9% 1,000 ML IV SCH ×2 (06:03→18:08)
[2021-08-07] MEDS: BALSAM PERU/CASTOR OIL 60 GM OINT...G. TP SCH (09:17)
[2021-08-07 12:00] VITALS: BP_SYST 145
[2021-08-07 16:23] VITALS: BP_SYST 148
[2021-08-07 20:00] VITALS: BP_SYST 150
[2021-08-07] MEDS: ERTAPENEM SODIUM 0.5 GM in NS 50 ML IV SCH (23:24)
[2021-08-07] MEDS: INSULIN REGULAR, HUMAN 100 UNITS/ML, 10 ML VIAL (humuLIN R) SUBCUT PRN (23:24)
[2021-08-08 00:39] VITALS: BP_SYST 153
[2021-08-08] MEDS: INSULIN REGULAR, HUMAN 100 UNITS/ML, 10 ML VIAL (humuLIN R) SUBCUT PRN ×3 (05:21→18:02)
[2021-08-08 08:00] VITALS: BP_SYST 148
[2021-08-08] MEDS: NACL 0.9% 1,000 ML IV SCH (08:20)
[2021-08-08] MEDS: BALSAM PERU/CASTOR OIL 60 GM OINT...G. TP SCH (08:24)
[2021-08-08 11:31] VITALS: BP_SYST 144
[2021-08-08 15:34] VITALS: BP_SYST 138
[2021-08-08 20:00] VITALS: BP_SYST 136
[2021-08-08] MEDS: ERTAPENEM SODIUM 0.5 GM in NS 50 ML IV SCH (23:52)
[2021-08-09] MEDS: NACL 0.9% 1,000 ML IV SCH ×2 (00:01→11:57)
[2021-08-09 00:42] VITALS: BP_SYST 117
[2021-08-09 06:40] LABS: BASOPHILS # (AUTO) 0.1 K/uL (0.0-0.2); BASOPHILS % (AUTO) 0.7 % (0.0-2.0); EOSINOPHILS # (AUTO) 0.2 K/uL (0.0-0.4); EOSINOPHILS % (AUTO) 1.9 % (0.0-4.0); HEMATOCRIT 32.3 % (36-48); HEMOGLOBIN 10.7 g/dL (12.0-16.0); LYMPHOCYTES # (AUTO) 4.3 K/uL (1.0-5.5); LYMPHOCYTES % (AUTO) 34.8 % (20.5-51.5); MEAN CORPUSCULAR HEMOGLOBIN 30 pg (27-31); MEAN CORPUSCULAR HGB CONC 33 % (32-36); MEAN CORPUSCULAR VOLUME 92 fL (79.0-98.0); MONOCYTES # (AUTO) 0.9 K/uL (0.0-1.0); MONOCYTES % (AUTO) 7.3 % (1.7-9.3); NEUTROPHILS # (AUTO) 6.9 K/uL (1.8-7.7); NEUTROPHILS % (AUTO) 55.3 % (40.0-70.0); PLATELET COUNT (AUTO) 192 K/uL (130-430); RED BLOOD CELL COUNT(AUTO) 3.52 MIL/uL (4.2-6.2); WHITE BLOOD COUNT (AUTO) 12.4 K/uL (4.8-10.8)
[2021-08-09 07:31] LABS: ALANINE AMINOTRANSFERASE 16 U/L (12-78); ALBUMIN 2.4 g/dL (3.4-4.8); ANION GAP 7 (5-15); ASPARTATE AMINOTRANSFERASE 10 U/L (10-37); CALCIUM 8.8 mg/dL (8.4-11.0); CHLORIDE 105 mmol/L (98-107); GLUCOSE 91 mg/dL (70-99); POTASSIUM 3.9 mmol/L (3.5-5.1); SODIUM SERUM 137 mmol/L (136-145); TOTAL BILIRUBIN 0.3 mg/dL (0.0-1.0); UREA NITROGEN, BLOOD 23 mg/dL (8-21)
[2021-08-09 08:00] VITALS: BP_SYST 155
[2021-08-09] MEDS: BALSAM PERU/CASTOR OIL 60 GM OINT...G. TP SCH (09:27)
[2021-08-09 12:00] VITALS: BP_SYST 136
[2021-08-09 18:12] VITALS: BP_SYST 156
[2021-08-09 20:00] VITALS: BP_SYST 132
[2021-08-09] MEDS: ERTAPENEM SODIUM 0.5 GM in NS 50 ML IV SCH (23:14)
[2021-08-09] MEDS: INSULIN REGULAR, HUMAN 100 UNITS/ML, 10 ML VIAL (humuLIN R) SUBCUT PRN (23:26)
[2021-08-10 01:35] VITALS: BP_SYST 152
[2021-08-10] MEDS: NACL 0.9% 1,000 ML IV SCH ×2 (02:15→19:00)
[2021-08-10 08:00] VITALS: BP_SYST 112
[2021-08-10] MEDS: BALSAM PERU/CASTOR OIL 60 GM OINT...G. TP SCH (09:20)
[2021-08-10] MEDS: INSULIN REGULAR, HUMAN 100 UNITS/ML, 10 ML VIAL (humuLIN R) SUBCUT PRN ×2 (11:57→18:18)
[2021-08-10 12:00] VITALS: BP_SYST 164
[2021-08-10 16:00] VITALS: BP_SYST 184
[2021-08-10] MEDS: hydrALAZINE HCL 25 MG TABLET PO PRN (18:16)
[2021-08-10 19:20] VITALS: BP_SYST 162
[2021-08-10 20:00] VITALS: BP_SYST 126; BP_SYST 127
[2021-08-10] MEDS: ERTAPENEM SODIUM 1 GM/VIAL VIAL ONE ×2 (22:40→23:14)
[2021-08-10] MEDS: ERTAPENEM SODIUM 0.5 GM in NS 50 ML IV SCH (22:41)
[2021-08-11 01:23] VITALS: BP_SYST 154
[2021-08-11 04:00] VITALS: BP_SYST 123
[2021-08-11 06:43] LABS: BASOPHILS # (AUTO) 0.1 K/uL (0.0-0.2); BASOPHILS % (AUTO) 0.6 % (0.0-2.0); EOSINOPHILS # (AUTO) 0.3 K/uL (0.0-0.4); EOSINOPHILS % (AUTO) 2.2 % (0.0-4.0); HEMATOCRIT 30.7 % (36-48); HEMOGLOBIN 10.3 g/dL (12.0-16.0); LYMPHOCYTES # (AUTO) 3.4 K/uL (1.0-5.5); LYMPHOCYTES % (AUTO) 26.4 % (20.5-51.5); MEAN CORPUSCULAR HEMOGLOBIN 30 pg (27-31); MEAN CORPUSCULAR HGB CONC 34 % (32-36); MEAN CORPUSCULAR VOLUME 91 fL (79.0-98.0); MONOCYTES % (AUTO) 7.5 % (1.7-9.3); NEUTROPHILS # (AUTO) 8.2 K/uL (1.8-7.7); NEUTROPHILS % (AUTO) 63.3 % (40.0-70.0); PLATELET COUNT (AUTO) 272 K/uL (130-430); RED BLOOD CELL COUNT(AUTO) 3.39 MIL/uL (4.2-6.2); RED CELL DISTRIBUTION WIDTH 15.6 % (9.0-15.0)
[2021-08-11] MEDS: NACL 0.9% 1,000 ML IV SCH (06:50)
[2021-08-11 07:04] LABS: ALANINE AMINOTRANSFERASE 19 U/L (12-78); ALBUMIN 2.4 g/dL (3.4-4.8); ANION GAP 9 (5-15); ASPARTATE AMINOTRANSFERASE 11 U/L (10-37); CALCIUM 8.9 mg/dL (8.4-11.0); CHLORIDE 104 mmol/L (98-107); CREATININE 0.59 mg/dL (0.55-1.30); GLUCOSE 98 mg/dL (70-99); POTASSIUM 3.5 mmol/L (3.5-5.1); SODIUM SERUM 136 mmol/L (136-145); TOTAL BILIRUBIN 0.3 mg/dL (0.0-1.0); UREA NITROGEN, BLOOD 21 mg/dL (8-21)
[2021-08-11] MEDS: BALSAM PERU/CASTOR OIL 60 GM OINT...G. TP SCH (09:28)
[2021-08-11] MEDS: hydrALAZINE HCL 25 MG TABLET PO PRN (09:29)
[2021-08-11] MEDS ORDERED: FLUCONAZOLE 200 mg/ NS 100 ML IV SCH (11:00)
[2021-08-11 13:58] VITALS: BP_SYST 145
[2021-08-11] MEDS ORDERED: COMMUNICATION ORDER XX ONE (14:00)
[2021-08-11 16:23] VITALS: BP_SYST 156
== END 2021-08-11 16:36 | DRG 871 ==
LOC: SED 23:05 → STU 08-04 03:09
PROVIDERS: ADMIT Internal Medicine Hospice and Palliative Medicine; ATTEND Internal Medicine Hospice and Palliative Medicine
DX: A41.51 Sepsis due to Escherichia coli [E. coli] (principal); U07.1 COVID-19; E43 Unspecified severe protein-calorie malnutrition; N39.0 Urinary tract infection, site not specified; E11.52 Type 2 diabetes mellitus with diabetic peripheral angiopathy with gangrene; I96 Gangrene, not elsewhere classified; M86.9 Osteomyelitis, unspecified; Z68.1 Body mass index [BMI] 19.9 or less, adult; F03.90 Unspecified dementia, unspecified severity, without behavioral disturbance, psychotic disturbance, mood disturbance, and anxiety; I10 Essential (primary) hypertension; E11.69 Type 2 diabetes mellitus with other specified complication; Z86.73 Personal history of transient ischemic attack (TIA), and cerebral infarction without residual deficits; Z88.0 Allergy status to penicillin; Z79.899 Other long term (current) drug therapy; Z87.440 Personal history of urinary (tract) infections
CPT/HCPCS: 36415; 71045; 80053; 80202; 81000; 82962; 83605; 84484; 85025; 85651-TC; 87040-TC; 87081; 87086; 92610-GN; 93005; 96365; 96366; 96368; 99291; G0378; J0692; J1335; J1450; J1815; J3370; J7050; J7060; U0003